=== PATIENT | female | born 1935 | race Caucasian/White ===

== ENCOUNTER 2023-03-26 11:18 | Inpatient (IN) | payer BC, OTHER ==
[2023-03-26] MEDS ORDERED: ALBUTEROL SO4 2.5/IPRATROPIUM 0.5 INH SOL 3 ML VIAL.NEB. NEB ONE ×2 (12:51→13:16)
[2023-03-26] MEDS ORDERED: methylPREDNISolone NA SUCC 125 MG/2 ML VIAL IVPUSH ONE (12:52)
[2023-03-26] MEDS ORDERED: methylPREDNISolone NA SUCC 125 MG/2 ML VIAL ONE (13:15)
[2023-03-26 13:32] LABS: HEMATOCRIT 45.9 % (32.4-45.2); HEMOGLOBIN 14.9 GM/dL (10.7-15.3); LYMPH % 5.4 % (8-40); MCHC 32.5 g/dl (32.0-36.0); MEAN PLT VOLUME 8.1 fl (7.5-11.1); NEUT % 88.6 % (42.8-82.8); PLATELET COUNT 434 10^3/uL (134-434); RBC 5.15 M/mm3 (3.60-5.2); RDW 14.6 % (11.6-15.6); WHITE BLOOD COUNT 12.9 K/mm3 (4.0-10.0)
[2023-03-26 13:43] LABS: INR 1.35 (0.83-1.09); PROTHROMBIN TIME (PATIENT) 15.6 SEC (9.7-13.0)
[2023-03-26 13:45] LABS: ACTIVATED PTT 28.1 SECONDS (25.2-36.5)
[2023-03-26 13:54] LABS: POTASSIUM 3.7 mmol/L (3.5-5.1)
[2023-03-26 13:58] LABS: BLOOD UREA NITROGEN 30.2 mg/dL (7-18); CALCIUM 9.7 mg/dL (8.5-10.1)
[2023-03-26 13:59] LABS: ALBUMIN 2.8 g/dl (3.4-5.0); VENOUS BASE EXCESS 10.8 mmol/L (-2-2); VENOUS O2 SATURATION 64.2 % (70-80); VENOUS PCO2 55.9 mmHg (38-52); VENOUS PH 7.448 (7.310-7.410)
[2023-03-26 14:01] LABS: CREATININE 1.2 mg/dL (0.55-1.3)
[2023-03-26 14:02] LABS: BILIRUBIN,TOTAL 0.7 mg/dL (0.2-1); TOT PROT 7.3 g/dl (6.4-8.2)
[2023-03-26 14:36] LABS: LACTIC ACID 2.5 mmol/L (0.4-2.0)
[2023-03-26] MEDS ORDERED: ACETAMINOPHEN 325 MG TABLET (FP) PO PRN (15:08)
[2023-03-26] MEDS: SODIUM CHLORIDE 1,000 ML IV SCH (15:27)
[2023-03-26 16:22] LABS: EPI CELLS >36 /uL (0-25.1); HYALINE CASTS 13 /uL (0-3.1); URINE APPEARANCE CLOUDY; URINE BACTERIA 854 /uL (0-1359); URINE BILIRUBIN 1+ (NEGATIVE); URINE COLOR DK YELLOW; URINE GLUCOSE (UA) NEGATIVE (NEGATIVE); URINE KETONE TRACE (NEGATIVE); URINE LEUK ESTERASE TRACE (NEGATIVE); URINE NITRITE NEGATIVE (NEGATIVE); URINE PROTEIN 2+ (NEGATIVE); URINE WBC 98 /uL (0-25.8)
[2023-03-26 17:02] LABS: URINE RBC 21.2 /uL (0-23.9)
[2023-03-26] MEDS ORDERED: OSELTAMIVIR PHOSPHATE 75 MG CAPSULE PO ONE (17:15)
[2023-03-26 17:28] LABS: LACTIC ACID 3.7 mmol/L (0.4-2.0)
[2023-03-26] MEDS ORDERED: OSELTAMIVIR PHOSPHATE 75 MG CAPSULE ONE (17:53)
[2023-03-27] MEDS: SODIUM CHLORIDE 1,000 ML IV SCH ×2 (02:12→15:22)
[2023-03-27 02:58] VITALS: BMI 28.2
[2023-03-27] MEDS: guaiFENesin 200 MG/10 ML 10 ML UNIT-DOSE CUPS PO PRN ×3 (03:49→18:03)
[2023-03-27 10:33] LABS: POTASSIUM 3.6 mmol/L (3.5-5.1)
[2023-03-27 10:36] LABS: HEMATOCRIT 36.7 % (32.4-45.2); HEMOGLOBIN 12.2 GM/dL (10.7-15.3); LYMPH % 6.1 % (8-40); MCH 29.6 pg (25.7-33.7); MCHC 33.1 g/dl (32.0-36.0); MEAN CELL VOLUME 89.3 fl (80-96); MEAN PLT VOLUME 7.8 fl (7.5-11.1); MONO % 5.8 % (3.8-10.2); NEUT % 88.1 % (42.8-82.8); PLATELET COUNT 298 10^3/uL (134-434); RBC 4.11 M/mm3 (3.60-5.2); RDW 14.3 % (11.6-15.6); WHITE BLOOD COUNT 9.2 K/mm3 (4.0-10.0)
[2023-03-27 10:42] LABS: BILIRUBIN,TOTAL 0.7 mg/dL (0.2-1); TOT PROT 5.6 g/dl (6.4-8.2)
[2023-03-27 10:45] LABS: CREATININE 0.9 mg/dL (0.55-1.3)
[2023-03-27 10:49] LABS: ALBUMIN 2.2 g/dl (3.4-5.0); CALCIUM 8.2 mg/dL (8.5-10.1)
[2023-03-27] MEDS: OSELTAMIVIR PHOSPHATE 30 MG CAPSULE PO SCH ×2 (13:23→21:40)
[2023-03-27] MEDS: PROPYLTHIOURACIL 50 MG TABLET (UD) PO SCH (13:23)
[2023-03-27] MEDS: VALSARTAN 160 MG TABLET PO SCH (13:23)
[2023-03-27] MEDS: ALBUTEROL SO4 2.5/IPRATROPIUM 0.5 INH SOL 3 ML VIAL.NEB. NEB PRN (14:20)
[2023-03-27] MEDS ORDERED: methylPREDNISolone NA SUCC 125 MG/2 ML VIAL IVPB ONE (15:00)
[2023-03-27] MEDS: HEPARIN NA (PORCINE) 5,000 UNITS/ML 1ML VIAL SQ SCH (21:41)
[2023-03-28] MEDS: SODIUM CHLORIDE 1,000 ML IV SCH (03:47)
[2023-03-28] MEDS: guaiFENesin 200 MG/10 ML 10 ML UNIT-DOSE CUPS PO PRN ×2 (03:56→09:59)
[2023-03-28] MEDS: ALBUTEROL SO4 2.5/IPRATROPIUM 0.5 INH SOL 3 ML VIAL.NEB. NEB PRN (07:45)
[2023-03-28] MEDS: PROPYLTHIOURACIL 50 MG TABLET (UD) PO SCH (09:59)
[2023-03-28] MEDS: VALSARTAN 160 MG TABLET PO SCH (09:59)
[2023-03-28] MEDS: OSELTAMIVIR PHOSPHATE 30 MG CAPSULE PO SCH ×2 (09:59→21:26)
[2023-03-28] MEDS: HEPARIN NA (PORCINE) 5,000 UNITS/ML 1ML VIAL SQ SCH ×2 (09:59→21:26)
[2023-03-28] MEDS: methylPREDNISolone NA SUCC 40 MG/1 ML VIAL IVPUSH SCH ×2 (12:15→17:22)
[2023-03-28] MEDS: BENZOCAINE/MENTH/CETYLPYRD CL 1 EACH LOZENGE MM PRN ×2 (12:16→17:22)
[2023-03-28] MEDS: ATENOLOL 25 MG TABLET (FP) PO SCH (12:16)
[2023-03-28] MEDS: HYDROCHLOROTHIAZIDE 25 MG TABLET (FP) PO SCH (12:16)
[2023-03-28] MEDS: ALBUTEROL SO4 2.5/IPRATROPIUM 0.5 INH SOL 3 ML VIAL.NEB. NEB SCH ×2 (15:57→20:10)
[2023-03-29] MEDS: methylPREDNISolone NA SUCC 40 MG/1 ML VIAL IVPUSH SCH ×3 (01:37→17:02)
[2023-03-29] MEDS: ALBUTEROL SO4 2.5/IPRATROPIUM 0.5 INH SOL 3 ML VIAL.NEB. NEB SCH ×3 (07:35→19:34)
[2023-03-29] MEDS: ATENOLOL 25 MG TABLET (FP) PO SCH (10:34)
[2023-03-29] MEDS: VALSARTAN 160 MG TABLET PO SCH (10:34)
[2023-03-29] MEDS: HEPARIN NA (PORCINE) 5,000 UNITS/ML 1ML VIAL SQ SCH ×2 (10:34→21:40)
[2023-03-29] MEDS: HYDROCHLOROTHIAZIDE 25 MG TABLET (FP) PO SCH (10:34)
[2023-03-29] MEDS: OSELTAMIVIR PHOSPHATE 30 MG CAPSULE PO SCH ×2 (10:35→21:41)
[2023-03-29] MEDS: PROPYLTHIOURACIL 50 MG TABLET (UD) PO SCH (10:35)
[2023-03-29] MEDS: BENZOCAINE/MENTH/CETYLPYRD CL 1 EACH LOZENGE MM PRN ×2 (11:33→17:02)
[2023-03-29] MEDS: guaiFENesin 200 MG/10 ML 10 ML UNIT-DOSE CUPS PO PRN ×2 (11:33→17:02)
[2023-03-29 12:49] LABS: HEMATOCRIT 40.3 % (32.4-45.2); HEMOGLOBIN 13.1 GM/dL (10.7-15.3); MCH 28.9 pg (25.7-33.7); MCHC 32.5 g/dl (32.0-36.0); MEAN CELL VOLUME 89.1 fl (80-96); MEAN PLT VOLUME 7.9 fl (7.5-11.1); PLATELET COUNT 351 10^3/uL (134-434); RBC 4.53 M/mm3 (3.60-5.2); RDW 14.4 % (11.6-15.6); WHITE BLOOD COUNT 12.4 K/mm3 (4.0-10.0)
[2023-03-29 13:10] LABS: POTASSIUM 3.8 mmol/L (3.5-5.1)
[2023-03-29 13:12] LABS: CALCIUM 8.6 mg/dL (8.5-10.1)
[2023-03-29 13:13] LABS: ALBUMIN 2.3 g/dl (3.4-5.0); BLOOD UREA NITROGEN 19.6 mg/dL (7-18)
[2023-03-29 13:16] LABS: CREATININE 0.8 mg/dL (0.55-1.3)
[2023-03-29 13:18] LABS: BILIRUBIN,TOTAL 0.6 mg/dL (0.2-1); TOT PROT 5.9 g/dl (6.4-8.2)
[2023-03-29 13:36] LABS: ANISOCYTOSIS 1+; MACROCYTOSIS 0
[2023-03-29] MEDS: INSULIN ASPART SLIDING SCALE (NOVOLOG) 1 VIAL SQ SCH ×2 (16:34→21:45)
[2023-03-29] MEDS: CEFTRIAXONE 1 GM in DEXTROSE 5%-WATER - 50 ML IVPB SCH (17:02)
[2023-03-29] MEDS: AZITHROMYCIN IVPB 500 MG/250 ML BAG IVPB SCH (18:28)
[2023-03-30] MEDS: methylPREDNISolone NA SUCC 40 MG/1 ML VIAL IVPUSH SCH ×2 (02:39→09:15)
[2023-03-30] MEDS: INSULIN ASPART SLIDING SCALE (NOVOLOG) 1 VIAL SQ SCH ×4 (06:40→21:45)
[2023-03-30] MEDS: ALBUTEROL SO4 2.5/IPRATROPIUM 0.5 INH SOL 3 ML VIAL.NEB. NEB SCH ×3 (07:15→20:11)
[2023-03-30] MEDS: guaiFENesin 200 MG/10 ML 10 ML UNIT-DOSE CUPS PO PRN (08:53)
[2023-03-30] MEDS ORDERED: SODIUM CHLORIDE NASAL SPRAY 44 ML BOTTLE NS PRN (08:55)
[2023-03-30] MEDS: CEFTRIAXONE 1 GM in DEXTROSE 5%-WATER - 50 ML IVPB SCH (09:14)
[2023-03-30] MEDS: HEPARIN NA (PORCINE) 5,000 UNITS/ML 1ML VIAL SQ SCH ×2 (09:15→21:41)
[2023-03-30] MEDS: AZITHROMYCIN IVPB 500 MG/250 ML BAG IVPB SCH (09:15)
[2023-03-30] MEDS: OSELTAMIVIR PHOSPHATE 30 MG CAPSULE PO SCH ×2 (09:16→21:41)
[2023-03-30] MEDS: PROPYLTHIOURACIL 50 MG TABLET (UD) PO SCH (09:16)
[2023-03-30] MEDS: ATENOLOL 25 MG TABLET (FP) PO SCH (09:16)
[2023-03-30] MEDS: VALSARTAN 160 MG TABLET PO SCH (09:16)
[2023-03-30] MEDS: HYDROCHLOROTHIAZIDE 25 MG TABLET (FP) PO SCH (09:17)
[2023-03-30] MEDS: ALBUTEROL SO4 2.5/IPRATROPIUM 0.5 INH SOL 3 ML VIAL.NEB. NEB PRN (12:07)
[2023-03-31] MEDS: INSULIN ASPART SLIDING SCALE (NOVOLOG) 1 VIAL SQ SCH ×4 (06:21→21:41)
[2023-03-31] MEDS: ALBUTEROL SO4 2.5/IPRATROPIUM 0.5 INH SOL 3 ML VIAL.NEB. NEB SCH ×3 (07:46→19:25)
[2023-03-31 09:32] LABS: POTASSIUM 4.1 mmol/L (3.5-5.1)
[2023-03-31 09:34] LABS: BLOOD UREA NITROGEN 20.3 mg/dL (7-18); CALCIUM 8.7 mg/dL (8.5-10.1)
[2023-03-31 09:35] LABS: ALBUMIN 2.5 g/dl (3.4-5.0)
[2023-03-31 09:37] LABS: CREATININE 0.9 mg/dL (0.55-1.3)
[2023-03-31 09:39] LABS: BILIRUBIN,TOTAL 0.6 mg/dL (0.2-1); TOT PROT 6.1 g/dl (6.4-8.2)
[2023-03-31] MEDS: methylPREDNISolone NA SUCC 40 MG/1 ML VIAL IVPUSH SCH (09:55)
[2023-03-31] MEDS: CEFTRIAXONE 1 GM in DEXTROSE 5%-WATER - 50 ML IVPB SCH (09:55)
[2023-03-31] MEDS: HEPARIN NA (PORCINE) 5,000 UNITS/ML 1ML VIAL SQ SCH ×2 (09:55→21:37)
[2023-03-31] MEDS: AZITHROMYCIN IVPB 500 MG/250 ML BAG IVPB SCH (09:55)
[2023-03-31] MEDS: VALSARTAN 160 MG TABLET PO SCH (09:56)
[2023-03-31] MEDS: HYDROCHLOROTHIAZIDE 25 MG TABLET (FP) PO SCH (09:56)
[2023-03-31] MEDS: OSELTAMIVIR PHOSPHATE 30 MG CAPSULE PO SCH (09:56)
[2023-03-31] MEDS: ATENOLOL 25 MG TABLET (FP) PO SCH (09:56)
[2023-03-31] MEDS: PROPYLTHIOURACIL 50 MG TABLET (UD) PO SCH (09:56)
[2023-03-31 10:16] LABS: HEMATOCRIT 41.9 % (32.4-45.2); HEMOGLOBIN 13.6 GM/dL (10.7-15.3); MCH 29.1 pg (25.7-33.7); MCHC 32.6 g/dl (32.0-36.0); MEAN CELL VOLUME 89.3 fl (80-96); MEAN PLT VOLUME 8.1 fl (7.5-11.1); PLATELET COUNT 307 10^3/uL (134-434); RBC 4.69 M/mm3 (3.60-5.2); WHITE BLOOD COUNT 11.2 K/mm3 (4.0-10.0)
[2023-03-31 12:26] LABS: ANISOCYTOSIS 0; HELMET CELLS 0; HOWELL-JOLLY BODIES 0; MACROCYTOSIS 0; OVALOCYTE 0; ROULEAU 0; SICKELED CELLS 0; TARGET CELLS 0; TEAR DROP CELLS 0; TOXIC GRANULATION 0
[2023-04-01] MEDS: INSULIN ASPART SLIDING SCALE (NOVOLOG) 1 VIAL SQ SCH ×4 (06:18→22:31)
[2023-04-01] MEDS: methylPREDNISolone NA SUCC 40 MG/1 ML VIAL IVPUSH SCH (09:12)
[2023-04-01] MEDS: ATENOLOL 25 MG TABLET (FP) PO SCH (09:12)
[2023-04-01] MEDS: VALSARTAN 160 MG TABLET PO SCH (09:12)
[2023-04-01] MEDS: HEPARIN NA (PORCINE) 5,000 UNITS/ML 1ML VIAL SQ SCH ×2 (09:12→22:30)
[2023-04-01] MEDS: HYDROCHLOROTHIAZIDE 25 MG TABLET (FP) PO SCH (09:12)
[2023-04-01] MEDS: AZITHROMYCIN IVPB 500 MG/250 ML BAG IVPB SCH (09:13)
[2023-04-01] MEDS: CEFTRIAXONE 1 GM in DEXTROSE 5%-WATER - 50 ML IVPB SCH (09:13)
[2023-04-01] MEDS: ALBUTEROL SO4 2.5/IPRATROPIUM 0.5 INH SOL 3 ML VIAL.NEB. NEB SCH ×3 (10:09→20:02)
[2023-04-01] MEDS: guaiFENesin 200 MG/10 ML 10 ML UNIT-DOSE CUPS PO PRN (10:29)
[2023-04-01] MEDS: PROPYLTHIOURACIL 50 MG TABLET (UD) PO SCH (11:57)
[2023-04-01] MEDS: INSULIN (LEVEMIR) 100 UNITS/ML UNITS SQ SCH (22:32)
[2023-04-02] MEDS: INSULIN ASPART SLIDING SCALE (NOVOLOG) 1 VIAL SQ SCH ×4 (06:26→21:32)
[2023-04-02] MEDS: ALBUTEROL SO4 2.5/IPRATROPIUM 0.5 INH SOL 3 ML VIAL.NEB. NEB SCH ×3 (08:43→19:46)
[2023-04-02] MEDS: CEFTRIAXONE 1 GM in DEXTROSE 5%-WATER - 50 ML IVPB SCH (09:52)
[2023-04-02] MEDS: methylPREDNISolone NA SUCC 40 MG/1 ML VIAL IVPUSH SCH (09:52)
[2023-04-02] MEDS: PROPYLTHIOURACIL 50 MG TABLET (UD) PO SCH (09:53)
[2023-04-02] MEDS: HYDROCHLOROTHIAZIDE 25 MG TABLET (FP) PO SCH (09:53)
[2023-04-02] MEDS: VALSARTAN 160 MG TABLET PO SCH (09:53)
[2023-04-02] MEDS: HEPARIN NA (PORCINE) 5,000 UNITS/ML 1ML VIAL SQ SCH ×2 (09:53→21:33)
[2023-04-02] MEDS: ATENOLOL 25 MG TABLET (FP) PO SCH (09:53)
[2023-04-02] MEDS: AZITHROMYCIN IVPB 500 MG/250 ML BAG IVPB SCH (10:38)
[2023-04-02] MEDS: NYSTATIN 500,000 UNITS/5 ML SUSPENSION PO SCH ×2 (14:22→18:05)
[2023-04-02 15:11] VITALS: RESP 18
[2023-04-02] MEDS: INSULIN (LEVEMIR) 100 UNITS/ML UNITS SQ SCH (21:29)
[2023-04-03] MEDS: NYSTATIN 500,000 UNITS/5 ML SUSPENSION PO SCH ×5 (00:02→23:11)
[2023-04-03] MEDS: ALBUTEROL SO4 2.5/IPRATROPIUM 0.5 INH SOL 3 ML VIAL.NEB. NEB PRN (03:13)
[2023-04-03] MEDS: INSULIN ASPART SLIDING SCALE (NOVOLOG) 1 VIAL SQ SCH ×4 (06:09→23:12)
[2023-04-03] MEDS: ALBUTEROL SO4 2.5/IPRATROPIUM 0.5 INH SOL 3 ML VIAL.NEB. NEB SCH ×3 (07:30→20:39)
[2023-04-03] MEDS: AZITHROMYCIN IVPB 500 MG/250 ML BAG IVPB SCH (09:57)
[2023-04-03] MEDS: CEFTRIAXONE 1 GM in DEXTROSE 5%-WATER - 50 ML IVPB SCH (09:57)
[2023-04-03] MEDS: PROPYLTHIOURACIL 50 MG TABLET (UD) PO SCH (09:58)
[2023-04-03] MEDS: HEPARIN NA (PORCINE) 5,000 UNITS/ML 1ML VIAL SQ SCH ×2 (09:58→23:11)
[2023-04-03] MEDS: methylPREDNISolone NA SUCC 40 MG/1 ML VIAL IVPUSH SCH (09:58)
[2023-04-03] MEDS: HYDROCHLOROTHIAZIDE 25 MG TABLET (FP) PO SCH (09:58)
[2023-04-03] MEDS: VALSARTAN 160 MG TABLET PO SCH (09:58)
[2023-04-03] MEDS: ATENOLOL 25 MG TABLET (FP) PO SCH (09:58)
[2023-04-03] MEDS: guaiFENesin 200 MG/10 ML 10 ML UNIT-DOSE CUPS PO PRN (14:22)
[2023-04-03] MEDS: INSULIN (LEVEMIR) 100 UNITS/ML UNITS SQ SCH (23:11)
[2023-04-04] MEDS: BENZOCAINE/MENTH/CETYLPYRD CL 1 EACH LOZENGE MM PRN (03:06)
[2023-04-04] MEDS: NYSTATIN 500,000 UNITS/5 ML SUSPENSION PO SCH ×3 (05:56→17:51)
[2023-04-04] MEDS: INSULIN ASPART SLIDING SCALE (NOVOLOG) 1 VIAL SQ SCH ×4 (06:21→21:31)
[2023-04-04] MEDS: ALBUTEROL SO4 2.5/IPRATROPIUM 0.5 INH SOL 3 ML VIAL.NEB. NEB SCH ×3 (07:45→20:23)
[2023-04-04] MEDS: methylPREDNISolone NA SUCC 40 MG/1 ML VIAL IVPUSH SCH (10:09)
[2023-04-04] MEDS: HEPARIN NA (PORCINE) 5,000 UNITS/ML 1ML VIAL SQ SCH ×2 (10:09→21:33)
[2023-04-04] MEDS: ATENOLOL 25 MG TABLET (FP) PO SCH (10:10)
[2023-04-04] MEDS: HYDROCHLOROTHIAZIDE 25 MG TABLET (FP) PO SCH (10:10)
[2023-04-04] MEDS: VALSARTAN 160 MG TABLET PO SCH (10:10)
[2023-04-04] MEDS: AZITHROMYCIN IVPB 500 MG/250 ML BAG IVPB SCH (10:16)
[2023-04-04] MEDS: PROPYLTHIOURACIL 50 MG TABLET (UD) PO SCH (10:55)
[2023-04-04] MEDS: CEFTRIAXONE 1 GM in DEXTROSE 5%-WATER - 50 ML IVPB SCH (11:20)
[2023-04-04] MEDS: LORATADINE 10 MG TABLET PO SCH (12:20)
[2023-04-04] MEDS: guaiFENesin 200 MG/10 ML 10 ML UNIT-DOSE CUPS PO SCH ×3 (12:21→23:04)
[2023-04-04] MEDS ORDERED: INSULIN ASPART SLIDING SCALE (NOVOLOG) 1 VIAL SQ ONE (17:14)
[2023-04-04] MEDS: INSULIN (LEVEMIR) 100 UNITS/ML UNITS SQ SCH (21:31)
[2023-04-05] MEDS: NYSTATIN 500,000 UNITS/5 ML SUSPENSION PO SCH ×5 (00:48→23:49)
[2023-04-05] MEDS: BENZOCAINE/MENTH/CETYLPYRD CL 1 EACH LOZENGE MM PRN (01:02)
[2023-04-05] MEDS: guaiFENesin 200 MG/10 ML 10 ML UNIT-DOSE CUPS PO SCH ×4 (05:56→23:49)
[2023-04-05] MEDS: INSULIN ASPART SLIDING SCALE (NOVOLOG) 1 VIAL SQ SCH ×4 (05:59→21:45)
[2023-04-05] MEDS: ALBUTEROL SO4 2.5/IPRATROPIUM 0.5 INH SOL 3 ML VIAL.NEB. NEB SCH ×3 (07:30→20:05)
[2023-04-05] MEDS: CEFTRIAXONE 1 GM in DEXTROSE 5%-WATER - 50 ML IVPB SCH (09:03)
[2023-04-05] MEDS: PROPYLTHIOURACIL 50 MG TABLET (UD) PO SCH (09:04)
[2023-04-05] MEDS: HYDROCHLOROTHIAZIDE 25 MG TABLET (FP) PO SCH (09:04)
[2023-04-05] MEDS: ATENOLOL 25 MG TABLET (FP) PO SCH (09:04)
[2023-04-05] MEDS: HEPARIN NA (PORCINE) 5,000 UNITS/ML 1ML VIAL SQ SCH ×2 (09:04→21:41)
[2023-04-05] MEDS: LORATADINE 10 MG TABLET PO SCH (09:04)
[2023-04-05] MEDS: VALSARTAN 160 MG TABLET PO SCH (09:04)
[2023-04-05] MEDS: AZITHROMYCIN IVPB 500 MG/250 ML BAG IVPB SCH (10:27)
[2023-04-05] MEDS ORDERED: INSULIN ASPART SLIDING SCALE (NOVOLOG) 1 VIAL SQ ONE ×2 (10:31→16:52)
[2023-04-05] MEDS: INSULIN (LEVEMIR) 100 UNITS/ML UNITS SQ SCH (21:42)
[2023-04-06] MEDS: ALBUTEROL SO4 2.5/IPRATROPIUM 0.5 INH SOL 3 ML VIAL.NEB. NEB SCH ×3 (02:30→20:47)
[2023-04-06] MEDS: NYSTATIN 500,000 UNITS/5 ML SUSPENSION PO SCH ×3 (05:57→17:26)
[2023-04-06] MEDS: guaiFENesin 200 MG/10 ML 10 ML UNIT-DOSE CUPS PO SCH ×3 (05:57→17:26)
[2023-04-06] MEDS: INSULIN ASPART SLIDING SCALE (NOVOLOG) 1 VIAL SQ SCH ×4 (06:00→21:37)
[2023-04-06] MEDS: PROPYLTHIOURACIL 50 MG TABLET (UD) PO SCH (10:29)
[2023-04-06] MEDS: HYDROCHLOROTHIAZIDE 25 MG TABLET (FP) PO SCH (10:29)
[2023-04-06] MEDS: ATENOLOL 25 MG TABLET (FP) PO SCH (10:29)
[2023-04-06] MEDS: VALSARTAN 160 MG TABLET PO SCH (10:29)
[2023-04-06] MEDS: HEPARIN NA (PORCINE) 5,000 UNITS/ML 1ML VIAL SQ SCH ×2 (10:29→21:33)
[2023-04-06] MEDS: LORATADINE 10 MG TABLET PO SCH (10:29)
[2023-04-06] MEDS ORDERED: AMOX TR/POT CLAV 500MG/125MG TABLETS (FP) PO ONE (11:42)
[2023-04-06] MEDS: AMOX TR/POT CLAV 500MG/125MG TABLETS (FP) PO SCH (17:26)
[2023-04-06] MEDS: INSULIN (LEVEMIR) 100 UNITS/ML UNITS SQ SCH (21:37)
[2023-04-07] MEDS: guaiFENesin 200 MG/10 ML 10 ML UNIT-DOSE CUPS PO SCH ×5 (00:20→23:30)
[2023-04-07] MEDS: NYSTATIN 500,000 UNITS/5 ML SUSPENSION PO SCH ×5 (00:20→23:30)
[2023-04-07] MEDS: INSULIN ASPART SLIDING SCALE (NOVOLOG) 1 VIAL SQ SCH ×4 (06:09→21:28)
[2023-04-07] MEDS: ALBUTEROL SO4 2.5/IPRATROPIUM 0.5 INH SOL 3 ML VIAL.NEB. NEB SCH ×3 (07:35→20:36)
[2023-04-07] MEDS: AMOX TR/POT CLAV 500MG/125MG TABLETS (FP) PO SCH ×2 (08:45→17:08)
[2023-04-07] MEDS: VALSARTAN 160 MG TABLET PO SCH (10:58)
[2023-04-07] MEDS: HEPARIN NA (PORCINE) 5,000 UNITS/ML 1ML VIAL SQ SCH ×2 (10:58→21:25)
[2023-04-07] MEDS: HYDROCHLOROTHIAZIDE 25 MG TABLET (FP) PO SCH (10:59)
[2023-04-07] MEDS: LORATADINE 10 MG TABLET PO SCH (11:00)
[2023-04-07] MEDS: PROPYLTHIOURACIL 50 MG TABLET (UD) PO SCH (11:00)
[2023-04-07] MEDS: ATENOLOL 25 MG TABLET (FP) PO SCH (11:00)
[2023-04-07] MEDS: INSULIN (LEVEMIR) 100 UNITS/ML UNITS SQ SCH (21:26)
[2023-04-08] MEDS: NYSTATIN 500,000 UNITS/5 ML SUSPENSION PO SCH ×2 (05:40→11:28)
[2023-04-08] MEDS: guaiFENesin 200 MG/10 ML 10 ML UNIT-DOSE CUPS PO SCH ×3 (05:40→16:44)
[2023-04-08] MEDS: INSULIN ASPART SLIDING SCALE (NOVOLOG) 1 VIAL SQ SCH ×3 (06:01→16:43)
[2023-04-08] MEDS: ALBUTEROL SO4 2.5/IPRATROPIUM 0.5 INH SOL 3 ML VIAL.NEB. NEB SCH ×2 (07:21→14:45)
[2023-04-08 08:36] VITALS: TEMP 97.8
[2023-04-08] MEDS: AMOX TR/POT CLAV 500MG/125MG TABLETS (FP) PO SCH ×2 (08:37→16:43)
[2023-04-08] MEDS: PROPYLTHIOURACIL 50 MG TABLET (UD) PO SCH (11:28)
[2023-04-08] MEDS: ATENOLOL 25 MG TABLET (FP) PO SCH (11:28)
[2023-04-08] MEDS: HEPARIN NA (PORCINE) 5,000 UNITS/ML 1ML VIAL SQ SCH (11:28)
[2023-04-08] MEDS: VALSARTAN 160 MG TABLET PO SCH (11:29)
[2023-04-08] MEDS: LORATADINE 10 MG TABLET PO SCH (11:29)
[2023-04-08] MEDS: HYDROCHLOROTHIAZIDE 25 MG TABLET (FP) PO SCH (11:29)
[2023-04-08 14:44] VITALS: BP 117/58; PULSE 83
== END 2023-04-08 16:05 | disposition home or self-care (01) | DRG 193 ==
LOC: JER 11:18 → JERBED 14:28 → J6S 03-27 01:32
PROVIDERS: ADMIT Internal Medicine; ATTEND Internal Medicine
DX: J11.00 Influenza due to unidentified influenza virus with unspecified type of pneumonia (principal); J96.01 Acute respiratory failure with hypoxia; E87.20 Acidosis, unspecified; I10 Essential (primary) hypertension; E78.5 Hyperlipidemia, unspecified
CPT/HCPCS: 0241U-QW; 36415; 71045-TC-FY; 71250-TC; 80053; 81003; 82803; 82962; 83605; 84484; 85025; 85610; 85730; 86850; 86900; 86901; 87040; 87086; 93005; 93010; 94640; 94761; 97116-GP; 97162-GP; 99291; J1644

== ENCOUNTER 2023-07-09 11:16 | Inpatient (IN) | payer BC ==
[2023-07-09 12:14] LABS: EPI CELLS >36 /uL (0-25.1); HYALINE CASTS 7 /uL (0-3.1); PH,URINE 5.5 (5.0-8.0); URINE APPEARANCE CLEAR; URINE BACTERIA 52 /uL (0-1359); URINE BILIRUBIN NEGATIVE (NEGATIVE); URINE COLOR YELLOW; URINE GLUCOSE (UA) 3+ (NEGATIVE); URINE KETONE 1+ (NEGATIVE); URINE LEUK ESTERASE NEGATIVE (NEGATIVE); URINE NITRITE NEGATIVE (NEGATIVE); URINE PROTEIN 1+ (NEGATIVE); URINE RBC 8 /uL (0-23.9); URINE UROBILINOGEN 0.2 mg/dL (0.2-1.0); URINE WBC 41 /uL (0-25.8)
[2023-07-09 12:21] LABS: VENOUS BASE EXCESS 2.2 mmol/L (-2-2); VENOUS O2 SATURATION 89.5 % (70-80); VENOUS PCO2 42.3 mmHg (38-52); VENOUS PH 7.422 (7.310-7.410)
[2023-07-09 12:23] LABS: HEMATOCRIT 49.5 % (32.4-45.2); HEMOGLOBIN 16.4 GM/dL (10.7-15.3); MCH 29.9 pg (25.7-33.7); MCHC 33.2 g/dl (32.0-36.0); MEAN PLT VOLUME 8.8 fl (7.5-11.1); PLATELET COUNT 121 10^3/uL (134-434); RBC 5.49 M/mm3 (3.60-5.2); RDW 14.6 % (11.6-15.6); WHITE BLOOD COUNT 10.6 K/mm3 (4.0-10.0)
[2023-07-09 12:38] LABS: INR 1.01 (0.83-1.09); PROTHROMBIN TIME (PATIENT) 11.4 SEC (9.7-13.0)
[2023-07-09 12:40] LABS: ACTIVATED PTT 21.7 SECONDS (25.2-36.5)
[2023-07-09] MEDS ORDERED: ONDANSETRON 4 MG/2 ML VIAL ONE (12:54)
[2023-07-09] MEDS ORDERED: ACETAMINOPHEN INJECTION 100 ML IVPB ONE (12:54)
[2023-07-09 12:57] LABS: ANISOCYTOSIS 1+; MACROCYTOSIS 0
[2023-07-09] MEDS: ACETAMINOPHEN 1000 MG/100 ML BAG IVPB ONE (13:02)
[2023-07-09] MEDS: LACTATED RINGERS SOLUTION 1000 ML INFUS.BAG IV ONE ×2 (13:02→15:02)
[2023-07-09] MEDS: ONDANSETRON 4 MG/2 ML VIAL IVPUSH ONE (13:03)
[2023-07-09 13:13] LABS: CHLORIDE 101 mmol/L (98-107); POTASSIUM 4.4 mmol/L (3.5-5.1); SODIUM 141 mmol/L (136-145)
[2023-07-09 13:16] LABS: CALCIUM 9.4 mg/dL (8.5-10.1)
[2023-07-09 13:17] LABS: ALBUMIN 3.4 g/dl (3.4-5.0); ANION GAP 8 mmol/L (4-13); CO2 31 mmol/L (21-32); MAGNESIUM 3.1 mg/dL (1.8-2.4)
[2023-07-09 13:19] LABS: PHOSPHOROUS 4.5 mg/dL (2.5-4.9)
[2023-07-09 13:20] LABS: CREATININE 1.7 mg/dL (0.55-1.3); SGOT/AST 41 U/L (15-37); SGPT/ALT 115 U/L (13-61)
[2023-07-09 13:21] LABS: TOT PROT 5.9 g/dl (6.4-8.2)
[2023-07-09 13:22] LABS: ALK PHOS 77 U/L (45-117)
[2023-07-09 13:33] LABS: GLUCOSE,RANDOM 740 mg/dL (74-106)
[2023-07-09] MEDS: SODIUM CHLORIDE 0.9% 500 ML INFUS.BAG IV ONE (13:35)
[2023-07-09] MEDS ORDERED: DEXTROSE 50%-WATER - 25 GM/50 ML VIAL IVPUSH PRN (14:19)
[2023-07-09] MEDS ORDERED: INSULIN REGULAR 100 UNITS in SODIUM CHLORIDE 99 ML IVPB SCH (14:30)
[2023-07-09] MEDS: INSULIN REGULAR HUMAN 100 UNITS/ML *VIAL* (FOR IVP) IVPUSH ONE (14:46)
[2023-07-09] MEDS ORDERED: KCL 10 MEQ IVPB 10 MEQ/100 ML INFUS.BAG IVPB ONE (14:57)
[2023-07-09] MEDS: KCL 10 MEQ IVPB 10 MEQ/100 ML INFUS.BAG IVPB SCH (15:02)
[2023-07-09 15:06] LABS: CHLORIDE 105 mmol/L (98-107); SODIUM 146 mmol/L (136-145)
[2023-07-09 15:07] LABS: ANION GAP 6 mmol/L (4-13); BLOOD UREA NITROGEN 46.9 mg/dL (7-18); CALCIUM 9.2 mg/dL (8.5-10.1); CO2 34 mmol/L (21-32)
[2023-07-09 15:09] LABS: LACTIC ACID 2.2 mmol/L (0.4-2.0)
[2023-07-09 15:11] LABS: CREATININE 1.5 mg/dL (0.55-1.3)
[2023-07-09 15:24] LABS: GLUCOSE,RANDOM 609 mg/dL (74-106)
[2023-07-09] MEDS: INSULIN REGULAR 100 UNITS in SODIUM CHLORIDE 99 ML IVPB SCH ×2 (16:51→20:28)
[2023-07-09 17:18] LABS: CHLORIDE 105 mmol/L (98-107); CHLORIDE 106 mmol/L (98-107); CHLORIDE 107 mmol/L (98-107); SODIUM 122 mmol/L (136-145); SODIUM 129 mmol/L (136-145); SODIUM 131 mmol/L (136-145)
[2023-07-09 17:19] LABS: CHLORIDE 104 mmol/L (98-107); SODIUM 127 mmol/L (136-145)
[2023-07-09 17:20] LABS: BLOOD UREA NITROGEN 32.2 mg/dL (7-18); CALCIUM 7.3 mg/dL (8.5-10.1); CO2 16 mmol/L (21-32); CO2 25 mmol/L (21-32); CO2 26 mmol/L (21-32); GLUCOSE,RANDOM 276 mg/dL (74-106)
[2023-07-09 17:21] LABS: BLOOD UREA NITROGEN 21.9 mg/dL (7-18); BLOOD UREA NITROGEN 36.7 mg/dL (7-18); CO2 28 mmol/L (21-32)
[2023-07-09 17:23] LABS: CREATININE 0.8 mg/dL (0.55-1.3)
[2023-07-09 17:24] LABS: CREATININE 0.3 mg/dL (0.55-1.3)
[2023-07-09 17:31] LABS: ANION GAP 0 mmol/L (4-13); CALCIUM 7.4 mg/dL (8.5-10.1); GLUCOSE,RANDOM 416 mg/dL (74-106); POTASSIUM > 10.0 mmol/L (3.5-5.1)
[2023-07-09 17:32] LABS: ANION GAP -1 mmol/L (4-13); ANION GAP -2 mmol/L (4-13); ANION GAP -5 mmol/L (4-13); CALCIUM 6.4 mg/dL (8.5-10.1); GLUCOSE,RANDOM 412 mg/dL (74-106); GLUCOSE,RANDOM 466 mg/dL (74-106); POTASSIUM > 10.0 mmol/L (3.5-5.1)
[2023-07-09 18:29] LABS: CHLORIDE 105 mmol/L (98-107); SODIUM 142 mmol/L (136-145)
[2023-07-09 18:31] LABS: ANION GAP 2 mmol/L (4-13); BLOOD UREA NITROGEN 44.3 mg/dL (7-18); CO2 35 mmol/L (21-32)
[2023-07-09 18:34] LABS: CREATININE 1.4 mg/dL (0.55-1.3)
[2023-07-09] MEDS: LACTATED RINGERS SOLUTION 1,000 ML with POTASSIUM CHLORIDE 20 MEQ IV ONE (18:34)
[2023-07-09 18:38] LABS: CALCIUM 8.6 mg/dL (8.5-10.1); GLUCOSE,RANDOM 525 mg/dL (74-106)
[2023-07-09] MEDS: CALCIUM GLUCONATE IN NACL 1 GM/50 ML BAG IVPB ONE (18:43)
[2023-07-09 19:54] LABS: POTASSIUM 4.1 mmol/L (3.5-5.1)
[2023-07-09 19:56] LABS: BLOOD UREA NITROGEN 41.5 mg/dL (7-18)
[2023-07-09 19:59] LABS: CREATININE 1.5 mg/dL (0.55-1.3)
[2023-07-09 20:03] LABS: CALCIUM 8.5 mg/dL (8.5-10.1)
[2023-07-09] MEDS ORDERED: HEPARIN NA (PORCINE) 5,000 UNITS/ML 1ML VIAL IVPUSH PRN (20:25)
[2023-07-09] MEDS: D5-LR+20 MEQ KCL - 20 MEQ/1,000 ML INFUS.BAG IV SCH (20:27)
[2023-07-09] MEDS: ASPIRIN 81 MG CHEWABLE TABLETS PO ONE (20:43)
[2023-07-09 20:56] LABS: LACTIC ACID 3.3 mmol/L (0.4-2.0)
[2023-07-09] MEDS: ATORVASTATIN CA 20 MG TABLET (FP) PO SCH (21:04)
[2023-07-09] MEDS: METOPROLOL TARTRATE 25 MG TABLET (FP) PO SCH (21:04)
[2023-07-09] MEDS: CHLORHEXIDINE GLUCONATE 4% CLEANSER FOR DECOLONIZATION TP SCH (21:04)
[2023-07-09] MEDS: HEPARIN - 25,000 UNIT in SODIUM CHLORIDE 495 ML IV SCH (21:33)
[2023-07-09] MEDS ORDERED: HEPARIN NA (PORCINE) 5,000 UNITS/ML 1ML VIAL SQ SCH (22:00)
[2023-07-09] MEDS: MUPIROCIN 2% TOPICAL OINTMENT FOR DECOLONIZATION NS SCH (22:04)
[2023-07-09 22:27] LABS: POTASSIUM 4.2 mmol/L (3.5-5.1)
[2023-07-09 22:29] LABS: BLOOD UREA NITROGEN 37.6 mg/dL (7-18)
[2023-07-09 22:32] LABS: CREATININE 1.2 mg/dL (0.55-1.3)
[2023-07-09 22:48] LABS: CALCIUM 8.8 mg/dL (8.5-10.1)
[2023-07-10 00:14] LABS: ARTERIAL BLD GAS O2 SATURATION 97.6 % (95-98); ARTERIAL BLOOD GAS BASE EXCESS 5.1 mmol/L (-2-2); ARTERIAL BLOOD GAS PO2 103.7 mmHg (80-100); ARTERIAL BLOOD GAS pH 7.383 (7.350-7.450)
[2023-07-10 00:22] LABS: ALLENS TEST POSITIVE
[2023-07-10 00:36] LABS: POTASSIUM 4.2 mmol/L (3.5-5.1)
[2023-07-10 00:37] LABS: CALCIUM 8.6 mg/dL (8.5-10.1)
[2023-07-10 00:38] LABS: BLOOD UREA NITROGEN 35.9 mg/dL (7-18)
[2023-07-10 00:41] LABS: CREATININE 1.1 mg/dL (0.55-1.3)
[2023-07-10 03:18] LABS: POTASSIUM 4.3 mmol/L (3.5-5.1)
[2023-07-10 03:20] LABS: CALCIUM 8.3 mg/dL (8.5-10.1)
[2023-07-10 03:21] LABS: BLOOD UREA NITROGEN 30.6 mg/dL (7-18)
[2023-07-10] MEDS: HEPARIN NA (PORCINE) 5,000 UNITS/ML 1ML VIAL IVPUSH PRN (05:34)
[2023-07-10] MEDS: INSULIN REGULAR 100 UNITS in SODIUM CHLORIDE 99 ML IVPB SCH (06:43)
[2023-07-10 07:23] LABS: HEMATOCRIT 41.3 % (32.4-45.2); HEMOGLOBIN 13.4 GM/dL (10.7-15.3); MCH 29.6 pg (25.7-33.7); MCHC 32.3 g/dl (32.0-36.0); MEAN CELL VOLUME 91.4 fl (80-96); MEAN PLT VOLUME 8.4 fl (7.5-11.1); PLATELET COUNT 93 10^3/uL (134-434); RBC 4.52 M/mm3 (3.60-5.2); RDW 14.4 % (11.6-15.6)
[2023-07-10 07:35] LABS: POTASSIUM 4.2 mmol/L (3.5-5.1)
[2023-07-10 07:41] LABS: CALCIUM 8.4 mg/dL (8.5-10.1); MAGNESIUM 2.2 mg/dL (1.8-2.4)
[2023-07-10 07:42] LABS: BLOOD UREA NITROGEN 27.9 mg/dL (7-18)
[2023-07-10 07:45] LABS: BILIRUBIN,TOTAL 0.4 mg/dL (0.2-1); CREATININE 0.9 mg/dL (0.55-1.3); PHOSPHOROUS 1.6 mg/dL (2.5-4.9); TOT PROT 4.5 g/dl (6.4-8.2)
[2023-07-10 07:48] LABS: ALBUMIN 2.5 g/dl (3.4-5.0)
[2023-07-10] MEDS: INSULIN (LEVEMIR) 100 UNITS/ML UNITS SQ SCH (09:23)
[2023-07-10] MEDS: NAPH,MB-DB/K PH,MBDB POWDER PACKET PO ONE (09:24)
[2023-07-10] MEDS: PROPYLTHIOURACIL 50 MG TABLET (UD) PO SCH (10:57)
[2023-07-10 12:14] LABS: PROTHROMBIN TIME (PATIENT) 11.3 SEC (9.7-13.0)
[2023-07-10] MEDS: INSULIN ASPART SLIDING SCALE (NOVOLOG) 1 VIAL SQ SCH (12:34)
[2023-07-10] MEDS: HEPARIN - 25,000 UNIT in SODIUM CHLORIDE 495 ML IV SCH (19:57)
[2023-07-11] MEDS ORDERED: ACETAMINOPHEN 325 MG TABLET (FP) ONE (00:39)
[2023-07-11] MEDS: ACETAMINOPHEN 325 MG TABLET (FP) PO PRN (00:40)
[2023-07-11 02:24] LABS: INR 0.99 (0.83-1.09); PROTHROMBIN TIME (PATIENT) 11.2 SEC (9.7-13.0)
[2023-07-11 02:27] LABS: ACTIVATED PTT 59.8 SECONDS (25.2-36.5)
[2023-07-11 06:45] LABS: BASO % 0.1 % (0-2.0); EOS % 0.8 % (0-4.5); HEMATOCRIT 41.5 % (32.4-45.2); HEMOGLOBIN 13.5 GM/dL (10.7-15.3); LYMPH % 16.8 % (8-40); MCH 29.6 pg (25.7-33.7); MCHC 32.6 g/dl (32.0-36.0); MEAN CELL VOLUME 90.7 fl (80-96); NEUT % 77.3 % (42.8-82.8); PLATELET COUNT 84 10^3/uL (134-434); RBC 4.58 M/mm3 (3.60-5.2); RDW 14.2 % (11.6-15.6)
[2023-07-11 06:50] LABS: POTASSIUM 4.1 mmol/L (3.5-5.1)
[2023-07-11 06:52] LABS: BLOOD UREA NITROGEN 18.4 mg/dL (7-18); CALCIUM 7.7 mg/dL (8.5-10.1)
[2023-07-11 06:53] LABS: ALBUMIN 2.2 g/dl (3.4-5.0); MAGNESIUM 1.8 mg/dL (1.8-2.4)
[2023-07-11 06:55] LABS: PHOSPHOROUS 2.4 mg/dL (2.5-4.9)
[2023-07-11 06:56] LABS: CREATININE 0.6 mg/dL (0.55-1.3)
[2023-07-11 06:57] LABS: BILIRUBIN,TOTAL 0.5 mg/dL (0.2-1); TOT PROT 4.1 g/dl (6.4-8.2)
[2023-07-11] MEDS ORDERED: INSULIN (NOVOLOG) ASPART 100 UNITS/ML 10ML VIAL ONE ×4 (10:18→20:47)
[2023-07-11 16:07] VITALS: BMI 23.9
[2023-07-12 07:44] LABS: HEMATOCRIT 40.1 % (32.4-45.2); HEMOGLOBIN 13.4 GM/dL (10.7-15.3); MCH 29.7 pg (25.7-33.7); MCHC 33.5 g/dl (32.0-36.0); MEAN CELL VOLUME 88.5 fl (80-96); MEAN PLT VOLUME 8.2 fl (7.5-11.1); PLATELET COUNT 79 10^3/uL (134-434); RBC 4.53 M/mm3 (3.60-5.2); WHITE BLOOD COUNT 5.9 K/mm3 (4.0-10.0)
[2023-07-12] MEDS ORDERED: INSULIN (NOVOLOG) ASPART 100 UNITS/ML 10ML VIAL ONE ×2 (10:38→16:55)
[2023-07-12] MEDS ORDERED: DEXTROSE 50%-WATER 25 GM/50 ML DISP.SYRIN IVPUSH PRN (15:15)
[2023-07-12] MEDS: D5-LR+20 MEQ KCL - 20 MEQ/1,000 ML INFUS.BAG IV SCH (16:04)
[2023-07-12] MEDS: INSULIN ASPART SLIDING SCALE (NOVOLOG) 1 VIAL SQ SCH (16:10)
[2023-07-12] MEDS: METOPROLOL TARTRATE 25 MG TABLET (FP) PO SCH (21:12)
[2023-07-12] MEDS: INSULIN (LEVEMIR) 100 UNITS/ML UNITS SQ SCH (21:12)
[2023-07-12] MEDS: CHLORHEXIDINE GLUCONATE 4% CLEANSER FOR DECOLONIZATION TP SCH (21:12)
[2023-07-12] MEDS: ATORVASTATIN CA 20 MG TABLET (FP) PO SCH (21:12)
[2023-07-13 07:11] LABS: HEMOGLOBIN 12.9 GM/dL (10.7-15.3); MCH 29.5 pg (25.7-33.7); MCHC 33.1 g/dl (32.0-36.0); MEAN CELL VOLUME 89.1 fl (80-96); PLATELET COUNT 88 10^3/uL (134-434); RBC 4.38 M/mm3 (3.60-5.2); RDW 14.2 % (11.6-15.6); WHITE BLOOD COUNT 6.1 K/mm3 (4.0-10.0)
[2023-07-13] MEDS: PROPYLTHIOURACIL 50 MG TABLET (UD) PO SCH (09:33)
[2023-07-14 07:58] LABS: HEMATOCRIT 38.2 % (32.4-45.2); HEMOGLOBIN 12.8 GM/dL (10.7-15.3); MCH 29.9 pg (25.7-33.7); MCHC 33.4 g/dl (32.0-36.0); MEAN CELL VOLUME 89.4 fl (80-96); MEAN PLT VOLUME 8.4 fl (7.5-11.1); PLATELET COUNT 115 10^3/uL (134-434); RBC 4.27 M/mm3 (3.60-5.2); RDW 14.2 % (11.6-15.6); WHITE BLOOD COUNT 5.2 K/mm3 (4.0-10.0)
[2023-07-14 09:59] VITALS: RESP 18
[2023-07-14] MEDS: EMPAGLIFLOZIN (JARDIANCE) 10 MG TABLET PO SCH (10:00)
[2023-07-15 07:59] LABS: HEMATOCRIT 33.7 % (32.4-45.2); HEMOGLOBIN 11.2 GM/dL (10.7-15.3); MCH 29.7 pg (25.7-33.7); MCHC 33.3 g/dl (32.0-36.0); MEAN CELL VOLUME 89.1 fl (80-96); PLATELET COUNT 123 10^3/uL (134-434); RBC 3.79 M/mm3 (3.60-5.2); RDW 14.2 % (11.6-15.6); WHITE BLOOD COUNT 4.2 K/mm3 (4.0-10.0)
[2023-07-15 10:53] VITALS: BP 130/58; PULSE 78; TEMP 98.2
== END 2023-07-15 14:33 | disposition home or self-care (01) | DRG 637 ==
LOC: JER 11:16 → JERBED 14:11 → JICU 16:01 → J4W 07-12 16:53
PROVIDERS: ADMIT Internal Medicine; ATTEND Internal Medicine
DX: E11.00 Type 2 diabetes mellitus with hyperosmolarity without nonketotic hyperglycemic-hyperosmolar coma (NKHHC) (principal); I21.4 Non-ST elevation (NSTEMI) myocardial infarction; N17.9 Acute kidney failure, unspecified; E87.0 Hyperosmolality and hypernatremia; E87.20 Acidosis, unspecified; G93.40 Encephalopathy, unspecified; I10 Essential (primary) hypertension; E78.5 Hyperlipidemia, unspecified; E05.90 Thyrotoxicosis, unspecified without thyrotoxic crisis or storm
CPT/HCPCS: 0241U-QW; 36415; 36600; 70450-TC; 71045-TC-FY; 80048; 80053; 81003; 82010; 82272; 82550; 82553; 82803; 82962; 83036; 83605; 83735; 83930; 84100; 84439; 84443; 84484; 85025; 85027; 85610; 85730; 87086; 93005; 93010; 93306-TC; 97116-GP; 97161-GP; 99291; J0131; J1644

== ENCOUNTER 2023-12-15 19:27 | Observation (INO) | payer BC ==
[2023-12-15 20:41] VITALS: BMI 28.3
[2023-12-15] MEDS: SODIUM CHLORIDE 0.9% 500 ML INFUS.BAG IV ONE (21:00)
[2023-12-15 21:09] LABS: BASO % 0.2 % (0-2.0); EOS % 0.3 % (0-4.5); HEMATOCRIT 47.7 % (32.4-45.2); HEMOGLOBIN 15.9 GM/dL (10.7-15.3); LYMPH % 12.5 % (8-40); MCH 28.4 pg (25.7-33.7); MCHC 33.3 g/dl (32.0-36.0); MEAN CELL VOLUME 85.2 fl (80-96); MEAN PLT VOLUME 7.9 fl (7.5-11.1); MONO % 6.1 % (3.8-10.2); NEUT % 80.9 % (42.8-82.8); PLATELET COUNT 227 10^3/uL (134-434); RBC 5.61 M/mm3 (3.60-5.2); WHITE BLOOD COUNT 9.3 K/mm3 (4.0-10.0)
[2023-12-15 21:24] LABS: POTASSIUM 4.7 mmol/L (3.5-5.1)
[2023-12-15 21:26] LABS: CALCIUM 9.4 mg/dL (8.5-10.1)
[2023-12-15 21:27] LABS: ALBUMIN 4.2 g/dl (3.4-5.0); BLOOD UREA NITROGEN 25.4 mg/dL (7-18); MAGNESIUM 2.6 mg/dL (1.8-2.4)
[2023-12-15 21:30] LABS: CREATININE 1.1 mg/dL (0.55-1.3); PHOSPHOROUS 3.3 mg/dL (2.5-4.9)
[2023-12-15 21:31] LABS: BILIRUBIN,TOTAL 0.8 mg/dL (0.2-1); TOT PROT 7.5 g/dl (6.4-8.2)
[2023-12-15 21:53] LABS: INR 0.92 (0.83-1.09); PROTHROMBIN TIME (PATIENT) 10.6 SEC (9.7-13.0)
[2023-12-15 21:55] LABS: ACTIVATED PTT 30.4 SECONDS (25.2-36.5)
[2023-12-15 23:24] LABS: PH,URINE 5.5 (5.0-8.0); URINE APPEARANCE CLEAR; URINE BILIRUBIN NEGATIVE (NEGATIVE); URINE COLOR YELLOW; URINE GLUCOSE (UA) 3+ (NEGATIVE); URINE KETONE NEGATIVE (NEGATIVE); URINE LEUK ESTERASE NEGATIVE (NEGATIVE); URINE NITRITE NEGATIVE (NEGATIVE); URINE PROTEIN NEGATIVE (NEGATIVE); URINE UROBILINOGEN 0.2 mg/dL (0.2-1.0)
[2023-12-16 06:13] LABS: BASO % 0.2 % (0-2.0); EOS % 0.5 % (0-4.5); HEMATOCRIT 42.9 % (32.4-45.2); HEMOGLOBIN 14.1 GM/dL (10.7-15.3); LYMPH % 14.8 % (8-40); MCH 28.3 pg (25.7-33.7); MCHC 32.9 g/dl (32.0-36.0); MEAN CELL VOLUME 86.1 fl (80-96); MEAN PLT VOLUME 7.7 fl (7.5-11.1); MONO % 9.9 % (3.8-10.2); NEUT % 74.6 % (42.8-82.8); PLATELET COUNT 187 10^3/uL (134-434); RBC 4.99 M/mm3 (3.60-5.2)
[2023-12-16 06:31] LABS: POTASSIUM 3.9 mmol/L (3.5-5.1)
[2023-12-16 06:33] LABS: BLOOD UREA NITROGEN 25.1 mg/dL (7-18); CALCIUM 9.1 mg/dL (8.5-10.1)
[2023-12-16 06:36] LABS: CREATININE 0.9 mg/dL (0.55-1.3)
[2023-12-16] MEDS: METOPROLOL TARTRATE 25 MG TABLET (FP) PO SCH (09:48)
[2023-12-16] MEDS: EMPAGLIFLOZIN (JARDIANCE) 10 MG TABLET PO SCH (09:48)
[2023-12-16] MEDS: PROPYLTHIOURACIL 50 MG TABLET (UD) PO SCH (09:48)
[2023-12-16] MEDS: HEPARIN NA (PORCINE) 5,000 UNITS/ML 1ML VIAL SQ SCH (21:45)
[2023-12-16] MEDS: ATORVASTATIN CA 20 MG TABLET (FP) PO SCH (21:45)
[2023-12-17] MEDS: METOPROLOL TARTRATE 25 MG TABLET (FP) PO SCH (11:16)
[2023-12-17 12:33] LABS: PH,URINE 5.5 (5.0-8.0); URINE APPEARANCE CLEAR; URINE BILIRUBIN NEGATIVE (NEGATIVE); URINE COLOR YELLOW; URINE GLUCOSE (UA) 3+ (NEGATIVE); URINE KETONE NEGATIVE (NEGATIVE); URINE LEUK ESTERASE NEGATIVE (NEGATIVE); URINE NITRITE NEGATIVE (NEGATIVE); URINE PROTEIN NEGATIVE (NEGATIVE); URINE UROBILINOGEN 0.2 mg/dL (0.2-1.0)
[2023-12-18 12:23] VITALS: RESP 18
[2023-12-18] MEDS: amLODIPine BESYLATE 2.5 MG TABLET (FP) PO SCH (12:26)
[2023-12-18 13:09] VITALS: BP 160/79; PULSE 98; TEMP 98.2
== END 2023-12-18 13:35 | disposition home or self-care (01) ==
LOC: JER 19:27 → JERBED 12-16 00:11 → J4S 12-16 01:16
PROVIDERS: ADMIT Internal Medicine; ATTEND Internal Medicine
PROC: 3E023GC Introduction of Other Therapeutic Substance into Muscle, Percutaneous Approach (ICD-10-PCS; principal; 2023-12-16)
PROC: 3E0337Z Introduction of Electrolytic and Water Balance Substance into Peripheral Vein, Percutaneous Approach (ICD-10-PCS; 2023-12-16)
DX: R55 Syncope and collapse (principal); E11.9 Type 2 diabetes mellitus without complications; E78.5 Hyperlipidemia, unspecified; I10 Essential (primary) hypertension; E03.9 Hypothyroidism, unspecified; Z29.89 Encounter for other specified prophylactic measures
CPT/HCPCS: 36415; 70450-TC; 71045-TC-FY; 80048; 80053; 81003; 82962; 83735; 84100; 84443; 84484; 85025; 85610; 85730; 87086; 93005; 93010; 93880-TC; 96372; 99285-25; G0378; J1644